=== PATIENT | male | born 1990 | race Hispanic/Latino ===

== ENCOUNTER 2021-02-16 07:19 | Observation (INO) | payer MEDICAID, MEDICARE ==
[~2021-02-16] VITALS: Ht 175.3 cm; Wt 97.9 kg
[2021-02-16 07:21] VITALS: BP 181/100
[2021-02-16] MEDS ORDERED: ONDANSETRON 4MG INJ ONE (07:48)
[2021-02-16 07:53] LABS: BASOPHILS % (AUTO) 0.7 % (0.0-5.0); EOSINOPHILS % (AUTO) 0.8 % (0.0-8.0); HEMATOCRIT 24.7 % (42-54); LYMPHOCYTES % (AUTO) 8.7 % (21.0-51.0); MEAN CORPUSCULAR HEMOGLOBIN 27.7 pg (27.0-33.0); MEAN CORPUSCULAR VOLUME 81.5 fL (79-99); MONOCYTES % (AUTO) 4.8 % (3.0-13.0); NEUTROPHILS % (AUTO) 84.1 % (40.0-77.0); PLATELET COUNT (AUTO) 241 K/uL (130-400); RED BLOOD CELL COUNT(AUTO) 3.03 MIL/uL (4.50-6.20); RED CELL DISTRIBUTION WIDTH 13.7 % (11.0-15.5); WHITE BLOOD COUNT (AUTO) 10.7 K/uL (4.8-10.8)
[2021-02-16 07:57] VITALS: BP 177/95
[2021-02-16] MEDS ORDERED: ONDANSETRON 4MG INJ IVP SCH (08:00)
[2021-02-16 08:15] LABS: ALBUMIN 3.1 g/dL (3.5-5.0); BILIRUBIN,TOTAL 0.3 mg/dL (0.2-1.0); MAGNESIUM 2.6 mg/dL (1.80-2.40); POTASSIUM 3.5 mmol/L (3.5-5.1); TOTAL PROTEIN, SERUM 7.8 g/dL (6.0-8.3)
[2021-02-16 08:21] LABS: CREATININE 19.3 mg/dL (0.5-1.5)
[2021-02-16 08:26] LABS: PHOSPHORUS 17.4 mg/dL (2.5-4.9)
[2021-02-16] MEDS ORDERED: PANTOPRAZOLE 40 MG/VIAL IVP SCH (09:01)
[2021-02-16 09:07] LABS: INR 0.94 (0.85-1.15); PROTHROMBIN TIME 10.3 SEC (9.6-11.6)
[2021-02-16 09:08] LABS: PARTIAL THROMBOPLASTIN TIME 29.2 SEC (26.3-35.5)
[2021-02-16] MEDS ORDERED: ONDANSETRON 4MG INJ IVP PRN (09:30)
[2021-02-16] MEDS ORDERED: ACETAMINOPHEN 325 MG TAB PO PRN (09:30)
[2021-02-16 09:55] LABS: HEMATOCRIT 23.4 % (42-54)
[2021-02-16 09:59] VITALS: BP 166/88
[2021-02-16 10:04] LABS: HEMOGLOBIN A1C 5.6 % (4.0-6.0)
[2021-02-16 10:13] LABS: ALBUMIN 2.9 g/dL (3.5-5.0)
[2021-02-16 10:19] LABS: % IRON SATURATION 76.5 % (30-44); CREATININE 19.6 mg/dL (0.5-1.5)
[2021-02-16 11:31] VITALS: BP 167/101
[2021-02-16] MEDS ORDERED: LIDOCAINE HCL 1% MDV 50ML VIAL ONE (11:49)
[2021-02-16] MEDS ORDERED: HEPARIN 1,000 UNIT VIAL ONE (11:49)
[2021-02-16] MEDS ORDERED: IOHEXOL-350 50ML VIAL IV ONE (12:30)
[2021-02-17 08:14] LABS: HEPATITIS B CORE IGM Negative (Negative); HEPATITIS Bs ANTIGEN SCREEN P Negative (Negative)
[2021-02-17 08:14] LABS: HEPATITIS Bs ANTIGEN SCREEN P Negative (Negative)
== END 2021-02-16 15:25 | disposition left against medical advice (07) ==
LOC: EDH 07:19 → EDHIP 08:40 → 3AH 11:07 → UNDODISOB 15:25
PROVIDERS: ADMIT Internal Medicine Nephrology; ATTEND Internal Medicine Nephrology
DX: I12.0 Hypertensive chronic kidney disease with stage 5 chronic kidney disease or end stage renal disease (principal); N18.6 End stage renal disease; D63.1 Anemia in chronic kidney disease; E87.2 Acidosis; E83.39 Other disorders of phosphorus metabolism; T86.12 Kidney transplant failure; F41.9 Anxiety disorder, unspecified; R11.2 Nausea with vomiting, unspecified
CPT/HCPCS: 36000; 36415; 75822; 80053; 80061; 80074; 82040; 82565; 82728; 83036; 83540; 83550; 83735; 84100; 84520; 85014; 85018; 85025; 85610; 85730; 86701; 86704; 86706; 87390; 93005; 96374; 96375; 99284; C1750; C1769 ×2; C1894; C9113; G0378 ×5; J1644 ×2; J2405 ×2; J3490; Q9967; 36010; 36011; 75827; 87340

== ENCOUNTER 2023-03-20 20:21 | Emergency (ER) | payer MEDICARE, MEDICAID ==
[~2023-03-20] VITALS: Ht 175.3 cm; Wt 93.9 kg
[2023-03-21 00:15] LABS: BASOPHILS % (AUTO) 1.2 % (0.0-5.0); EOSINOPHILS # (AUTO) 0.13 K/uL (0.00-0.70); EOSINOPHILS % (AUTO) 1.6 % (0.0-8.0); HEMATOCRIT 40.1 % (42-54); IMMATURE GRANULOCYTE ABSOLUTE 0.04 K/uL (0-1); LYMPHOCYTES # (AUTO) 1.4 K/uL (1.0-4.8); LYMPHOCYTES % (AUTO) 16.4 % (21.0-51.0); MEAN CORPUSCULAR HEMOGLOBIN 30.8 pg (27.0-33.0); MEAN CORPUSCULAR HGB CONC 32.9 g/dL (32.0-36.0); MEAN CORPUSCULAR VOLUME 93.7 fL (79-99); MONOCYTES # (AUTO) 0.6 K/uL (0.1-1.0); MONOCYTES % (AUTO) 7.5 % (3.0-13.0); NEUTROPHILS # (AUTO) 6.1 K/uL (1.8-7.7); NEUTROPHILS % (AUTO) 72.8 % (40.0-77.0); PLATELET COUNT (AUTO) 180 K/uL (130-400); RED BLOOD CELL COUNT(AUTO) 4.28 MIL/uL (4.50-6.20); RED CELL DISTRIBUTION WIDTH 14.9 % (11.0-15.5); WHITE BLOOD COUNT (AUTO) 8.3 K/uL (4.8-10.8)
[2023-03-21 00:27] LABS: INR < 0.93 (0.85-1.15); PROTHROMBIN TIME 10.3 SEC (9.6-11.6)
[2023-03-21 00:29] LABS: PARTIAL THROMBOPLASTIN TIME 29.8 SEC (26.3-35.5)
[2023-03-21 00:30] LABS: ALBUMIN 3.9 g/dL (3.5-5.0); BILIRUBIN,TOTAL 0.3 mg/dL (0.2-1.0); POTASSIUM 3.9 mmol/L (3.5-5.1); TOTAL PROTEIN, SERUM 9.7 g/dL (6.0-8.3)
[2023-03-21 00:33] LABS: CREATININE 8.5 mg/dL (0.5-1.5)
[2023-03-21] MEDS ORDERED: DOXY-252 PO (02:17)
[2023-03-21 02:55] VITALS: BP 143/79; PULSE 93; RESP 18; O2SAT 98
== END 2023-03-21 02:57 | disposition home or self-care (01) ==
LOC: EDH 20:21
DX: N49.2 Inflammatory disorders of scrotum (principal); I10 Essential (primary) hypertension
CPT/HCPCS: 36415; 76870; 80053; 85025; 85610; 85730

== ENCOUNTER 2024-12-22 01:59 | Emergency (ER) | payer MEDICARE ==
[~2024-12-22] VITALS: Ht 177.8 cm; Wt 110.2 kg
[~2024-12-22 01:59] MED LIST: DOXY-252 PO
--- NOTE | 2024-12-22 02:16 | EKG ---
[facility] Test Date: 2024-12-22 Test Time: 02:12:49 Pat Name: NOHEMI PICKETT Department: ED Room: Gender: M [employer]: 1346 : 1990 Requested By: SILVIO CISNEROS Order Number: [id number] Reading MD: Chrissy Mcmahon Measurements Intervals [place] Rate: 78 P: 16 MS: 168 QRS: 0 QRSD: 80 T: 0 QT: 383 QTc: 437 Interpretive Statements Sinus rhythm Markedly posterior QRS axis Nonspecific T abnormalities, inferior leads Compared to ECG 02/16/2021 09:41:45 Posterior QRS axis now present T-wave abnormality now present Electronically Signed On 12-22-2024 12:14:22 CDT by Chrissy Mcmahon Please click the below link to view image of tracing.
[2024-12-22 02:28] LABS: IMMATURE GRANULOCYTE ABSOLUTE 0.05 K/uL (0-1); NUCLEATED RED BLOOD CELLS 0.0 % (0.0-0.19); PLATELET COUNT (AUTO) 191 K/uL (130-400); RED BLOOD CELL COUNT(AUTO) 2.95 MIL/uL (4.50-6.20); RED CELL DISTRIBUTION WIDTH 12.9 % (11.0-15.5); WHITE BLOOD COUNT (AUTO) 10.3 K/uL (4.8-10.8)
--- NOTE | 2024-12-22 02:28 | ERN ---
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 He would normally get his dialysis tomorrow. His schedule is Saturday. He has been consistent with dialysis, he has not missed any sessions. He also has been compliant with all of his medications including metoprolol for his blood pressure. Allergies: Coded Allergies: No Known Drug Allergies (Unverified Allergy, Unknown, 02/16/21) Home Meds Active Scripts Doxycycline Hyclate (Doxycycline Hyclate) 100 Mg Tablet., 100 MG PO BID, #20 TAB Prov:FANNY WARREN MD 03/21/23 Past Medical History Past Medical History: Hypertension, Renal Disese Medical History Other: dialysis dependent Past Surgical History: Other Surgical History Other: HX OF KIDNEY TRANSPLANTS both failed Family History Family History: DM, HTN Social History Social History: Negative, Lives with family Constitutional: (-) chills, (-) diaphoresis, (-) fever, (-) malaise, (-) weakne ss, (-) other documentation EENTM: (-) eye pain, (-) blurred vision, (-) tearing, (-) double vision, (-) e ar pain, (-) ear discharge, (-) nose pain, (-) nose congestion, (-) throat pain, (-) Throat swelling, (-) mouth pain, (-) tooth pain, (-) mouth swelling, (-) other documentation Respiratory: (+) short of breath Cardiovascular: (-) chest pain, (-) edema, (-) palpitations, (-) syncope, (-) dyspnea on exertion, (-) other documentation Gastrointestinal/Abdominal: (-) nausea, (-) vomiting, (-) diarrhea, (-) abdominal pain, (-) abdominal distention, (-) constipation, (-) rectal bleeding, (-) dark stool/melena, (-) other documentation Genitourinary: (-) penile discharge, (-) dysuria, (-) frequency, (-) hematuria, (-) pain, (-) other documentation Physical Exam General Appearance: (+) mild distress Orientation: (+) alert, (+) oriented x 3 Head/Face Trauma: No Eye: bilateral eye normal inspection, bilateral eye PERRL, bilateral eye EOMI Ear, Nose, Throat: (+) hearing grossly normal, (+) normal ENT inspection, (+) moist mucous membraine Neck: (+) normal inspection, (+) supple, (+) full range of motion Respiratory: (+) chest non-tender, (+) lungs clear, (+) well ventilated Heart: (+) regular, (+) no gallop Vascular: (+) no edema, (+) normal peripheral pulse, (+) no JVD Gastrointestinal: (+) soft, (+) non-tender, (+) no organomegaly, (+) bowel sound present Results Laboratory and Microbiology Lab and Micro Result Laboratory Tests Test 12/22/24 02:20 White Blood Count 10.3 K/uL (4.8-10.8) Red Blood Count 2.95 MIL/uL (4.50-6.20) L Hemoglobin 9.3 g/dL (14.0-18.0) L Hematocrit 27.2 % (42-54) L Mean Corpuscular Volume 92.2 fL (79-99) Mean Corpuscular Hemoglobin 31.5 pg (27.0-33.0) Mean Corpuscular Hemoglobin Concent 34.2 g/dL (32.0-36.0) Red Cell Distribution Width 12.9 % (11.0-15.5) Platelet Count 191 K/uL (130-400) Mean Platelet Volume 10.2 fL (7.5-10.5) Immature Granulocyte % (Auto) 0.5 % (0-1) Neutrophils (%) (Auto) 76.5 % (40.0-77.0) Lymphocytes (%) (Auto) 13.8 % (21.0-51.0) L Monocytes (%) (Auto) 5.3 % (3.0-13.0) Eosinophils (%) (Auto) 3.0 % (0.0-8.0) Basophils (%) (Auto) 0.9 % (0.0-5.0) Neutrophils # (Auto) 7.9 K/uL (1.8-7.7) H Lymphocytes # (Auto) 1.4 K/uL (1.0-4.8) Monocytes # (Auto) 0.6 K/uL (0.1-1.0) Eosinophils # (Auto) 0.31 K/uL (0.00-0.70) Basophils # (Auto) 0.09 K/uL (0.00-0.20) Absolute Immature Granulocyte (auto 0.05 K/uL (0-1) Nucleated Red Blood Cells 0.0 % (0.0-0.19) Sodium Level 141 mmol/L (136-145) Potassium Level 3.4 mmol/L (3.5-5.1) L Chloride Level 100 mmol/L (101-111) L Carbon Dioxide Level 29 mmol/L (21-32) Blood Urea Nitrogen 79 mg/dL (7-18) *H Creatinine 13.5 mg/dL (0.5-1.3) *H Glomerular Filtration Rate Calc 4 mL/min (>90) Random Glucose 148 mg/dL (70-105) H Total Calcium 9.0 mg/dL (8.5-10.1) Troponin I High Sensitivity 32 ng/L (4-75) B-Type Natriuretic Peptide 1300 pg/mL (0-100) H MDM MDM: Differential diagnosis: Patient may be fluid overloaded despite compliance with his care and dialysis sessions. Could also be heart failure, pneumonia, bronchitis, pneumonitis, asthma. Patient's lungs do sound clear on auscultation. Rationale: Tests considered and ordered secondary to shared decision making include: Previous outside records reviewed: Old ER visits. Risk of complication and/or morbidity or mortality of patient management: None Medications-Per medication reconciliation Need for hospitalization: Patient does meet criteria for hospitalization. Need for emergency major/minor surgery: No There are no social concerns with this patient. Prescription drug management Prescriptions will include symptomatic care Patient's prior external medical records from other ER visits were reviewed by me as indicated. Prior testing and results from previous visits were reviewed. Prior tests were taken into account with medical decision making and resource utilization, independent historian/historians were used to obtain complete medical history. I independently interpreted the test that were performed, results were reviewed by me and considered findings on radiology if ordered. I have ordered a chest x-ray as well as standard labs. Patient's labs are showing a normal potassium an elevated BUN and creatinine. His chest x-ray shows flash pulmonary edema with Stephani bronchial cuffing and loss of costophrenic angles. On surprisingly his beta natriuretic peptide is elevated as well. My plan was to admit the patient to the hospital where we could observe him to be sure that he maintained good oxygen saturations until dialysis could be arranged. The patient has decided to go to his regular dialysis session at his regular dialysis center they have a availability in 1 hour. Patient explained the risks of driving to his dialysis center. The risks include worsening hypoxia or cardiac arrhythmias. Patient is willing to take these risks and left for his dialysis center. ED Course Orders Procedure Category Date Status Time Cbc With Differential LAB 12/22/24 Complete 02:09 Basic Metabolic Panel LAB 12/22/24 Complete 02:09 Urinalysis Profile LAB 12/22/24 Logged 02:09 Chest 1vw RAD 12/22/24 Resulted 02:09 Troponin I High LAB 12/22/24 Complete Sensitivity 02:09 12 Lead Ekg Tracing- EKG 12/22/24 Complete Technical 02:09 B-Type Natriuretic LAB 12/22/24 Complete Peptide 02:09 12 Lead Ekg Tracing- EKG 12/22/24 Logged Technical 02:20 Vital Signs Date Time Temp Pulse Resp B/P (MAP) Pulse Ox O2 Delivery O2 Flow Rate FiO2 12/22/24 03:54 98.4 78 17 198/99 100 Room Air* 0 12/22/24 03:25 98.6 84 19 189/95 99 Room Air* 0 12/22/24 02:17 98.4 82 18 188/88 99 Room Air* 0 12/22/24 02:00 98.2 72 20 184/91 100 Room Air DX & DISP Disposition: AMA Departure Impression: Primary Impression: Need for acute hemodialysis Condition: Stable Referrals: JEWELL RAYGOZA MD (PCP) SILVIO CISNEROS MD Dec 22, 2024 02:28
[2024-12-22 02:45] LABS: GLOMERULAR FILTR. RATE CALC 4.0 mL/min (>90); GLUCOSE,RANDOM 148.0 mg/dL (70-105); SODIUM SERUM 141.0 mmol/L (136-145)
[2024-12-22 02:47] LABS: CREATININE 13.5 mg/dL (0.5-1.3); UREA NITROGEN, BLOOD 79.0 mg/dL (7-18)
--- NOTE | 2024-12-22 03:24 | HMCIMG ---
EXAM: CR Chest, 1 view CLINICAL HISTORY: Shortness of breath. COMPARISON: Chest radiograph dated 06/11/2012. FINDINGS: Left mid to lower zone airspace disease could be atelectasis or infiltrates. No pleural effusion or pneumothorax. The cardiomediastinal silhouette is within normal limits. No acute osseous abnormality. IMPRESSION: Interval development of left mid to lower zone airspace disease could be atelectasis or infiltrates. /[place]
[2024-12-22 03:54] VITALS: BP 198/99; PULSE 78; RESP 17; TEMP 98.4; O2SAT 100
--- NOTE | 2024-12-22 03:55 | NUR ---
PT REQUESTING TO LEAVE AMA AGAINST THE RECOMMENDATION OF DR. CISNEROS FOR ADMISSION TO THE HOSPITAL FOR FURTHER TREATMENT AND DIALYSIS. PER PT HE SPOKE WITH HIS DIALYSIS NURSE AT [facility] AND SHE HAS A CHAIR OPEN FOR HIM AT 0500. PT INFORMED OF RISKS OF LEAVING AMA, CONTINUED TO REFUSE ADMISSION. PT INFORMED TO RETURN TO ER FOR ADMISSION AND FURTHER TREATMENT IF HE CHANGES HIS MIND OR IS UNABLE TO GET HD AT 0500. PT VERBALIZED UNDERSTANDING OF INFORMATION PROVIDED. PT NOTED TO BE HYPERTENSIVE, ALL OTHER VSS. NO SIGNS OF ACUTE DISTRESS NOTED AT TIME OF AMA. RESP EVEN AND UNLABORED ON RA SATTING 100%. ER MD AWARE OF PT DECISION.
== END 2024-12-22 04:02 | disposition left against medical advice (07) ==
LOC: EDH 01:59
DX: R06.02 Shortness of breath (principal); I10 Essential (primary) hypertension; Z94.0 Kidney transplant status; Z99.2 Dependence on renal dialysis; Z79.899 Other long term (current) drug therapy
CPT/HCPCS: 36415; 71045; 80048; 83880; 84484; 85025; 93005; 99285